=== PATIENT | male | born 1955 | race Hispanic/Latino ===

== ENCOUNTER 2022-12-10 18:04 | Inpatient (IN) | payer MEDICARE ==
[~2022-12-10] VITALS: Ht 165.1 cm; Wt 79.9 kg
[~2022-12-10 18:04] MED LIST: DEXAMETHASONE SOD PHOS INJ 4 MG/ML SDV ONE; EPHEDRINE SULFATE INJ 50 MG/ML VIAL ONE; KETOROLAC TROMETHAMINE 30 MG/ML VIAL ONE; LIDOCAINE HCL 2% LOCAL INJ 5 ML SDV VIAL INJ ONE; METOCLOPRAMIDE HCL 10 MG/2ML VIAL ONE; ONDANSETRON HCL INJ 2MG/ML 2ML 2 MG/ML VIAL ONE; POVIDONE IODINE 0.05% 0.05 % ML PO ONE; PROPOFOL IV EMULSION 10 MG/ML 20 ML VIAL ONE; ROCURONIUM BROMIDE 10 MG/ML 5ML VIAL IV ONE; SEVOFLURANE INHAL SOLN 250 ML PEN BTL ONE; SUCCINYLCHOLINE CHLORIDE 20 MG/ML 10ML VIAL ONE
[2022-12-10] MEDS ORDERED: ONDANSETRON HCL INJ 2MG/ML 2ML 2 MG/ML VIAL IV STA (18:40)
[2022-12-10] MEDS ORDERED: FAMOTIDINE 20 MG/2 ML VIAL IV STA (18:40)
[2022-12-10] MEDS ORDERED: SODIUM CHLORIDE 0.9% 1000ML 1,000 ML IV SCH (18:45)
[2022-12-10] MEDS ORDERED: FLOMAX0.4 MG PO (18:48)
[2022-12-10] MEDS ORDERED: ATORVASTATIN CA20 MG PO (18:48)
[2022-12-10] MEDS ORDERED: [UNRECOGNIZED DRUG - OTHER] (18:48)
[2022-12-10] MEDS ORDERED: LEVOFLOXACIN250 MG PO (18:48)
[2022-12-10] MEDS ORDERED: IOPAMIDOL 370 MG/ML 100 ML INFUS..BTL INJ ONE (19:41)
[2022-12-10] MEDS ORDERED: FAMOTIDINE 20 MG/2 ML VIAL IV ONE (19:58)
[2022-12-10] MEDS ORDERED: SODIUM CHLORIDE 0.9% 1000ML 1,000 ML ONE (19:58)
[2022-12-10] MEDS ORDERED: ONDANSETRON HCL INJ 2MG/ML 2ML 2 MG/ML VIAL ONE (19:58)
[2022-12-10] MEDS ORDERED: CEFTRIAXONE 1 GM VIAL ONE (22:43)
[2022-12-10 23:59] VITALS: BP 145/82
[2022-12-11] VITALS (8 sets, daily range): BP systolic 113–145; BP diastolic 70–83
[2022-12-11] MEDS ORDERED: FINASTERIDE5 MG PO (00:10)
[2022-12-11] MEDS: SODIUM CHLORIDE 0.9% 1000ML 1,000 ML IV SCH ×4 (01:27→21:06)
[2022-12-11 08:07] LABS: BASOPHILS # (AUTO) 0.1 (0.0-0.1); BASOPHILS % 0.9 % (0.0-1.0); EOSINOPHILS # (AUTO) 0.2 (0.0-0.4); HEMOGLOBIN 14.1 g/dL (14.0-18.0); LYMPHOCYTES # (AUTO) 1.5 (1.0-3.2); LYMPHOCYTES % 18.5 % (18.0-39.1); MEAN CORPUSCULAR HEMOGLOBIN 29.9 pg (28-32); MEAN CORPUSCULAR HGB CONC 32.8 g/dL (31-35); MEAN CORPUSCULAR VOLUME 91.1 fL (81-99); MONOCYTES # (AUTO) 0.6 (0.2-0.8); MONOCYTES % 7.5 % (4.4-11.3); NEUTROPHILS # (AUTO) 5.4 (2.1-6.9); NEUTROPHILS % 69.3 % (38.7-80.0); PLATELET COUNT 305 x10e3/uL (140-360); RED BLOOD COUNT 4.72 x10e6/uL (4.3-5.7); RED CELL DISTRIBUTION WIDTH 13.9 % (11.7-14.4)
[2022-12-11 08:30] LABS: ANION GAP 15.4 mmol/L (8-16); CALCIUM 9.4 mg/dL (8.4-10.2); CREATININE, SERUM 0.83 mg/dL (0.72-1.25); POTASSIUM 4.4 mmol/L (3.5-5.1)
[2022-12-11 08:59] LABS: CREATINE KINASE MB 0.9 ng/mL (0-5.0)
[2022-12-11] MEDS ORDERED: GADOBENATE DIMEGLUMINE 1 ML IV ONE (10:18)
[2022-12-11] MEDS ORDERED: ACETAMINOPHEN/CODEINE 300MG - 30MG TAB PO PRN (10:30)
[2022-12-11] MEDS ORDERED: ONDANSETRON HCL INJ 2MG/ML 2ML 2 MG/ML VIAL IV PRN (10:30)
[2022-12-11] MEDS: FINASTERIDE 5 MG TAB PO SCH (12:04)
[2022-12-11] MEDS: TAMSULOSIN HCL 0.4 MG CAP PO SCH (12:04)
[2022-12-11 13:04] LABS: CLARITY,URINE SL CLOUDY (CLEAR); COLOR,URINE YELLOW (YELLOW); KETONES,URINE NEGATIVE (NEGATIVE); LEUKOCYTE ESTERASE ,URINE NEGATIVE (NEGATIVE); NITRITE,URINE NEGATIVE (NEGATIVE); PROTEIN,URINE DIPSTICK NEGATIVE (NEGATIVE); URINE UROBILINOGEN 0.2 mg/dL (0.2 - 1)
[2022-12-11 13:26] LABS: BACTERIA,URINE MODERATE /HPF; EPITHELIAL CELLS,URINE RARE /LPF; RBC,URINE >50 /HPF (0-5); WBC,URINE (MAN) 0-5 /HPF (0-5)
[2022-12-11 16:29] LABS: CREATINE KINASE MB 0.8 ng/mL (0-5.0)
[2022-12-11] MEDS: ATORVASTATIN 20 MG TAB PO SCH (21:06)
[2022-12-12] VITALS (7 sets, daily range): BP systolic 116–131; BP diastolic 66–82
[2022-12-12 00:26] LABS: ALBUMIN 3.4 g/dL (3.5-5.0); BILIRUBIN,DIRECT 0.2 mg/dL (0.0-0.5)
[2022-12-12] MEDS: SODIUM CHLORIDE 0.9% 1000ML 1,000 ML IV SCH ×2 (05:00→18:42)
[2022-12-12 05:56] LABS: BASOPHILS # (AUTO) 0.1 (0.0-0.1); BASOPHILS % 1.1 % (0.0-1.0); EOSINOPHILS # (AUTO) 0.2 (0.0-0.4); EOSINOPHILS % 3.2 % (0.0-6.0); HEMATOCRIT 44.5 % (38.2-49.6); HEMOGLOBIN 14.5 g/dL (14.0-18.0); LYMPHOCYTES # (AUTO) 1.5 (1.0-3.2); LYMPHOCYTES % 24.1 % (18.0-39.1); MEAN CORPUSCULAR HEMOGLOBIN 29.7 pg (28-32); MEAN CORPUSCULAR HGB CONC 32.6 g/dL (31-35); MEAN CORPUSCULAR VOLUME 91.2 fL (81-99); MONOCYTES # (AUTO) 0.5 (0.2-0.8); MONOCYTES % 8.2 % (4.4-11.3); NEUTROPHILS # (AUTO) 3.8 (2.1-6.9); NEUTROPHILS % 61.5 % (38.7-80.0); PLATELET COUNT 331 x10e3/uL (140-360); RED BLOOD COUNT 4.88 x10e6/uL (4.3-5.7); RED CELL DISTRIBUTION WIDTH 13.8 % (11.7-14.4)
[2022-12-12 06:16] LABS: ALBUMIN 3.2 g/dL (3.5-5.0); ALBUMIN/GLOBULIN RATIO 0.9 (0.8-2.0); CREATININE, SERUM 0.78 mg/dL (0.72-1.25)
[2022-12-12 08:31] LABS: CREATINE KINASE MB 0.7 ng/mL (0-5.0)
[2022-12-12] MEDS: TAMSULOSIN HCL 0.4 MG CAP PO SCH (13:11)
[2022-12-12] MEDS: FINASTERIDE 5 MG TAB PO SCH (13:11)
[2022-12-12] MEDS: ATORVASTATIN 20 MG TAB PO SCH (22:11)
[2022-12-13] VITALS (7 sets, daily range): BP systolic 119–148; BP diastolic 72–85
[2022-12-13] MEDS: SODIUM CHLORIDE 0.9% 1000ML 1,000 ML IV SCH ×2 (06:07→21:28)
[2022-12-13] MEDS: FINASTERIDE 5 MG TAB PO SCH (08:31)
[2022-12-13] MEDS: TAMSULOSIN HCL 0.4 MG CAP PO SCH (08:31)
[2022-12-13] MEDS: ATORVASTATIN 20 MG TAB PO SCH (21:28)
[2022-12-14] VITALS (9 sets, daily range): BP systolic 96–156; BP diastolic 68–91
[2022-12-14 06:15] LABS: BASOPHILS # (AUTO) 0.1 (0.0-0.1); BASOPHILS % 1.4 % (0.0-1.0); EOSINOPHILS # (AUTO) 0.3 (0.0-0.4); EOSINOPHILS % 3.9 % (0.0-6.0); HEMOGLOBIN 14.6 g/dL (14.0-18.0); LYMPHOCYTES # (AUTO) 1.6 (1.0-3.2); LYMPHOCYTES % 24.8 % (18.0-39.1); MEAN CORPUSCULAR HEMOGLOBIN 31.9 pg (28-32); MEAN CORPUSCULAR HGB CONC 34.8 g/dL (31-35); MEAN CORPUSCULAR VOLUME 91.9 fL (81-99); MONOCYTES # (AUTO) 0.5 (0.2-0.8); MONOCYTES % 7.2 % (4.4-11.3); NEUTROPHILS # (AUTO) 3.9 (2.1-6.9); NEUTROPHILS % 60.7 % (38.7-80.0); PLATELET COUNT 295 x10e3/uL (140-360); RED BLOOD COUNT 4.57 x10e6/uL (4.3-5.7); RED CELL DISTRIBUTION WIDTH 14.5 % (11.7-14.4)
[2022-12-14 06:46] LABS: ALBUMIN 3.4 g/dL (3.5-5.0); ALBUMIN/GLOBULIN RATIO 0.9 (0.8-2.0); ANION GAP 12.8 mmol/L (8-16); CALCIUM 9.2 mg/dL (8.4-10.2); CREATININE, SERUM 0.8 mg/dL (0.72-1.25); POTASSIUM 3.8 mmol/L (3.5-5.1)
[2022-12-14] MEDS ORDERED: IOPAMIDOL 610MG/1ML 300 MG/ML VIAL IV ONE (08:29)
[2022-12-14] MEDS ORDERED: GENTAMICIN SULFATE 40 MG/ML 2 ML VIAL ONE (08:49)
[2022-12-14] MEDS: TAMSULOSIN HCL 0.4 MG CAP PO SCH (09:00)
[2022-12-14] MEDS: FINASTERIDE 5 MG TAB PO SCH (09:00)
[2022-12-14] MEDS ORDERED: FUROSEMIDE INJ 10 MG/ML 4 ML VIAL ONE (09:51)
[2022-12-14] MEDS ORDERED: SODIUM CHLORIDE 0.9% 1000ML 1,000 ML IV SCH (10:45)
[2022-12-14] MEDS ORDERED: DIPHENHYDRAMINE HCL 25 MG CAP PO PRN (10:45)
[2022-12-14] MEDS ORDERED: ONDANSETRON HCL INJ 2MG/ML 2ML 2 MG/ML VIAL IV PRN (10:45)
[2022-12-14] MEDS ORDERED: ACETAMINOPHEN 1000 MG/100 ML IV PRN (10:45)
[2022-12-14] MEDS: SODIUM CHLORIDE 0.9% 1000ML 1,000 ML IV SCH ×2 (12:15→21:59)
[2022-12-14 12:28] LABS: BASOPHILS % 0.3 % (0.0-1.0); EOSINOPHILS % 0.1 % (0.0-6.0); HEMATOCRIT 43.8 % (38.2-49.6); HEMOGLOBIN 14.3 g/dL (14.0-18.0); LYMPHOCYTES # (AUTO) 1.1 (1.0-3.2); LYMPHOCYTES % 7.4 % (18.0-39.1); MEAN CORPUSCULAR HEMOGLOBIN 29.7 pg (28-32); MEAN CORPUSCULAR HGB CONC 32.6 g/dL (31-35); MEAN CORPUSCULAR VOLUME 91.1 fL (81-99); MONOCYTES # (AUTO) 0.2 (0.2-0.8); MONOCYTES % 1.1 % (4.4-11.3); NEUTROPHILS # (AUTO) 13.4 (2.1-6.9); NEUTROPHILS % 89.8 % (38.7-80.0); PLATELET COUNT 362 x10e3/uL (140-360); RED BLOOD COUNT 4.81 x10e6/uL (4.3-5.7); RED CELL DISTRIBUTION WIDTH 13.2 % (11.7-14.4)
[2022-12-14 12:45] LABS: ANION GAP 17.2 mmol/L (8-16); CALCIUM 8.5 mg/dL (8.4-10.2); CREATININE, SERUM 0.88 mg/dL (0.72-1.25); POTASSIUM 4.2 mmol/L (3.5-5.1)
[2022-12-14] MEDS ORDERED: Morphine 10mg syringe 10 MG/ML INJ ONE (13:31)
[2022-12-14] MEDS ORDERED: FENTANYL CITRATE/PF 100MCG/2 ML INJ ONE (13:31)
[2022-12-14] MEDS: ONDANSETRON HCL 4 MG ORAL DISINTEGRATING TAB PO PRN (13:46)
[2022-12-14] MEDS ORDERED: PROMETHAZINE 12.5MG/ NACL 0.9% 12.5 MG/50 ML BAG IV ONE (15:30)
[2022-12-14] MEDS: DOCUSATE SODIUM 100 MG CAP PO SCH (16:13)
[2022-12-14] MEDS: ATORVASTATIN 20 MG TAB PO SCH (21:59)
[2022-12-15] VITALS (7 sets, daily range): BP systolic 107–114; BP diastolic 66–70
[2022-12-15 05:31] LABS: BASOPHILS % 0.1 % (0.0-1.0); HEMATOCRIT 38.9 % (38.2-49.6); HEMOGLOBIN 12.8 g/dL (14.0-18.0); LYMPHOCYTES # (AUTO) 1.2 (1.0-3.2); LYMPHOCYTES % 7.7 % (18.0-39.1); MEAN CORPUSCULAR HEMOGLOBIN 29.9 pg (28-32); MEAN CORPUSCULAR HGB CONC 32.9 g/dL (31-35); MEAN CORPUSCULAR VOLUME 90.9 fL (81-99); MONOCYTES # (AUTO) 1.1 (0.2-0.8); MONOCYTES % 7.2 % (4.4-11.3); NEUTROPHILS # (AUTO) 12.9 (2.1-6.9); NEUTROPHILS % 83.8 % (38.7-80.0); PLATELET COUNT 330 x10e3/uL (140-360); RED BLOOD COUNT 4.28 x10e6/uL (4.3-5.7); RED CELL DISTRIBUTION WIDTH 13.5 % (11.7-14.4)
[2022-12-15 05:43] LABS: ANION GAP 15.9 mmol/L (8-16); CALCIUM 8.6 mg/dL (8.4-10.2); CREATININE, SERUM 0.98 mg/dL (0.72-1.25); POTASSIUM 4.9 mmol/L (3.5-5.1)
[2022-12-15] MEDS: DOCUSATE SODIUM 100 MG CAP PO SCH ×2 (08:28→17:08)
[2022-12-15] MEDS: FINASTERIDE 5 MG TAB PO SCH (08:28)
[2022-12-15] MEDS: TAMSULOSIN HCL 0.4 MG CAP PO SCH (08:28)
[2022-12-15] MEDS: ACETAMINOPHEN/CODEINE 300MG - 30MG TAB PO PRN ×3 (08:30→18:54)
[2022-12-15] MEDS: SODIUM CHLORIDE 0.9% 1000ML 1,000 ML IV SCH (11:30)
[2022-12-15] MEDS: ATORVASTATIN 20 MG TAB PO SCH (20:16)
[2022-12-15 23:33] LABS: ALBUMIN 2.7 g/dL (3.5-5.0); BILIRUBIN,DIRECT 0.2 mg/dL (0.0-0.5)
[2022-12-16] VITALS (7 sets, daily range): BP systolic 106–131; BP diastolic 63–77
[2022-12-16] MEDS: SODIUM CHLORIDE 0.9% 1000ML 1,000 ML IV SCH ×2 (00:53→14:31)
[2022-12-16 05:05] LABS: BASOPHILS # (AUTO) 0.1 (0.0-0.1); BASOPHILS % 0.4 % (0.0-1.0); EOSINOPHILS # (AUTO) 0.1 (0.0-0.4); EOSINOPHILS % 0.4 % (0.0-6.0); HEMOGLOBIN 10.9 g/dL (14.0-18.0); LYMPHOCYTES # (AUTO) 1.8 (1.0-3.2); LYMPHOCYTES % 13.2 % (18.0-39.1); MEAN CORPUSCULAR HEMOGLOBIN 30.5 pg (28-32); MEAN CORPUSCULAR VOLUME 92.4 fL (81-99); MONOCYTES # (AUTO) 1.1 (0.2-0.8); MONOCYTES % 8.3 % (4.4-11.3); NEUTROPHILS # (AUTO) 10.2 (2.1-6.9); NEUTROPHILS % 75.8 % (38.7-80.0); PLATELET COUNT 289 x10e3/uL (140-360); RED BLOOD COUNT 3.57 x10e6/uL (4.3-5.7); RED CELL DISTRIBUTION WIDTH 13.8 % (11.7-14.4)
[2022-12-16 05:28] LABS: ANION GAP 11.7 mmol/L (8-16); CALCIUM 7.9 mg/dL (8.4-10.2); CREATININE, SERUM 0.79 mg/dL (0.72-1.25); POTASSIUM 4.7 mmol/L (3.5-5.1)
[2022-12-16] MEDS: TAMSULOSIN HCL 0.4 MG CAP PO SCH (08:50)
[2022-12-16] MEDS: DOCUSATE SODIUM 100 MG CAP PO SCH ×2 (08:50→18:11)
[2022-12-16] MEDS: FINASTERIDE 5 MG TAB PO SCH (08:50)
[2022-12-16] MEDS: ACETAMINOPHEN/CODEINE 300MG - 30MG TAB PO PRN ×2 (08:51→16:14)
[2022-12-16] MEDS ORDERED: BISACODYL 5 MG TAB EC PO ONE (11:30)
[2022-12-16] MEDS: ONDANSETRON HCL 4 MG ORAL DISINTEGRATING TAB PO PRN (12:18)
[2022-12-16] MEDS: ACETAMINOPHEN 325 MG TAB PO PRN (15:54)
[2022-12-16] MEDS: ATORVASTATIN 20 MG TAB PO SCH (20:02)
[2022-12-16 22:45] LABS: % IRON SATURATION 33 % (15-50); IRON 62 ug/dL (65-175); TOTAL IRON BINDING CAPACITY 189 ug/dL (261-478); TRANSFERRIN 135 mg/dL (174-364)
[2022-12-17] VITALS (7 sets, daily range): BP systolic 118–144; BP diastolic 65–80
[2022-12-17] MEDS: SODIUM CHLORIDE 0.9% 1000ML 1,000 ML IV SCH ×2 (03:58→17:59)
[2022-12-17 05:38] LABS: BASOPHILS # (AUTO) 0.1 (0.0-0.1); BASOPHILS % 0.6 % (0.0-1.0); EOSINOPHILS # (AUTO) 0.1 (0.0-0.4); EOSINOPHILS % 1.4 % (0.0-6.0); HEMATOCRIT 31.3 % (38.2-49.6); HEMOGLOBIN 10.3 g/dL (14.0-18.0); LYMPHOCYTES # (AUTO) 1.9 (1.0-3.2); LYMPHOCYTES % 18.5 % (18.0-39.1); MEAN CORPUSCULAR HEMOGLOBIN 29.9 pg (28-32); MEAN CORPUSCULAR HGB CONC 32.9 g/dL (31-35); MEAN CORPUSCULAR VOLUME 90.7 fL (81-99); MONOCYTES % 9.5 % (4.4-11.3); NEUTROPHILS # (AUTO) 6.9 (2.1-6.9); NEUTROPHILS % 68.1 % (38.7-80.0); PLATELET COUNT 286 x10e3/uL (140-360); RED BLOOD COUNT 3.45 x10e6/uL (4.3-5.7); RED CELL DISTRIBUTION WIDTH 13.6 % (11.7-14.4)
[2022-12-17 06:02] LABS: ANION GAP 12.7 mmol/L (8-16); CALCIUM 8.4 mg/dL (8.4-10.2); CREATININE, SERUM 0.7 mg/dL (0.72-1.25); POTASSIUM 3.7 mmol/L (3.5-5.1)
[2022-12-17] MEDS: DOCUSATE SODIUM 100 MG CAP PO SCH ×2 (06:15→17:59)
[2022-12-17] MEDS: ACETAMINOPHEN/CODEINE 300MG - 30MG TAB PO PRN (06:15)
[2022-12-17] MEDS: FINASTERIDE 5 MG TAB PO SCH (09:31)
[2022-12-17] MEDS: TAMSULOSIN HCL 0.4 MG CAP PO SCH (09:31)
[2022-12-17] MEDS ORDERED: BISACODYL 5 MG TAB EC PO ONE (11:00)
[2022-12-17] MEDS: ACETAMINOPHEN 325 MG TAB PO PRN (12:06)
[2022-12-17] MEDS: ATORVASTATIN 20 MG TAB PO SCH (21:31)
[2022-12-17] MEDS ORDERED: CYANOCOBALAMIN INJ 1,000 MCG/ML VIAL IM ONE (23:15)
[2022-12-18] VITALS (7 sets, daily range): BP systolic 109–135; BP diastolic 67–75
[2022-12-18] MEDS ORDERED: CYANOCOBALAMIN INJ 1,000 MCG/ML VIAL IM ONE (02:45)
[2022-12-18] MEDS: SODIUM CHLORIDE 0.9% 1000ML 1,000 ML IV SCH ×2 (03:42→19:21)
[2022-12-18 04:59] LABS: BASOPHILS # (AUTO) 0.1 (0.0-0.1); BASOPHILS % 0.9 % (0.0-1.0); EOSINOPHILS # (AUTO) 0.2 (0.0-0.4); EOSINOPHILS % 2.1 % (0.0-6.0); HEMATOCRIT 30.1 % (38.2-49.6); HEMOGLOBIN 9.8 g/dL (14.0-18.0); LYMPHOCYTES # (AUTO) 1.7 (1.0-3.2); LYMPHOCYTES % 18.4 % (18.0-39.1); MEAN CORPUSCULAR HGB CONC 32.6 g/dL (31-35); MONOCYTES # (AUTO) 0.8 (0.2-0.8); MONOCYTES % 8.8 % (4.4-11.3); NEUTROPHILS # (AUTO) 6.3 (2.1-6.9); NEUTROPHILS % 67.3 % (38.7-80.0); PLATELET COUNT 311 x10e3/uL (140-360); RED BLOOD COUNT 3.27 x10e6/uL (4.3-5.7); RED CELL DISTRIBUTION WIDTH 13.5 % (11.7-14.4)
[2022-12-18 05:23] LABS: ALBUMIN 2.6 g/dL (3.5-5.0); ALBUMIN/GLOBULIN RATIO 0.9 (0.8-2.0); ANION GAP 13.7 mmol/L (8-16); CALCIUM 8.5 mg/dL (8.4-10.2); CREATININE, SERUM 0.76 mg/dL (0.72-1.25); POTASSIUM 3.7 mmol/L (3.5-5.1)
[2022-12-18] MEDS ORDERED: CYANOCOBALAMIN INJ 1,000 MCG/ML VIAL IM SCH (09:00)
[2022-12-18] MEDS: FINASTERIDE 5 MG TAB PO SCH (10:27)
[2022-12-18] MEDS: TAMSULOSIN HCL 0.4 MG CAP PO SCH (10:27)
[2022-12-18] MEDS: DOCUSATE SODIUM 100 MG CAP PO SCH ×2 (10:27→17:00)
[2022-12-18] MEDS: IRON SUCROSE 100 MG in SODIUM CHLORIDE 0.9% 100 ML IV SCH (12:38)
[2022-12-18] MEDS ORDERED: BISACODYL 5 MG TAB EC PO ONE (20:00)
[2022-12-18] MEDS: ATORVASTATIN 20 MG TAB PO SCH (20:17)
[2022-12-18] MEDS: CYANOCOBALAMIN INJ 1,000 MCG/ML VIAL IM SCH (20:18)
[2022-12-18] MEDS: ACETAMINOPHEN/CODEINE 300MG - 30MG TAB PO PRN (20:18)
[2022-12-19] MEDS: SODIUM CHLORIDE 0.9% 1000ML 1,000 ML IV SCH (05:13)
[2022-12-19 05:16] VITALS: BP 109/59
[2022-12-19 05:54] VITALS: BP 109/59
[2022-12-19 08:00] VITALS: BP 109/70
[2022-12-19] MEDS: IRON SUCROSE 100 MG in SODIUM CHLORIDE 0.9% 100 ML IV SCH (08:26)
[2022-12-19] MEDS: TAMSULOSIN HCL 0.4 MG CAP PO SCH (08:26)
[2022-12-19] MEDS: DOCUSATE SODIUM 100 MG CAP PO SCH ×2 (08:26→17:12)
[2022-12-19] MEDS: FINASTERIDE 5 MG TAB PO SCH (08:27)
[2022-12-19 12:36] VITALS: BP 104/67
[2022-12-19] MEDS ORDERED: BISACODYL 5 MG TAB EC PO ONE (13:00)
[2022-12-19] MEDS ORDERED: CITRATE OF MAGNESIA 300ML BOTTLE PO ONE (14:15)
[2022-12-19 16:00] VITALS: BP 124/81
[2022-12-19 20:40] VITALS: BP 159/85
[2022-12-19] MEDS: ATORVASTATIN 20 MG TAB PO SCH (20:45)
[2022-12-19] MEDS: ACETAMINOPHEN/CODEINE 300MG - 30MG TAB PO PRN (20:45)
[2022-12-19] MEDS: CYANOCOBALAMIN INJ 1,000 MCG/ML VIAL IM SCH (20:46)
[2022-12-20 00:27] VITALS: BP 99/58
[2022-12-20 04:00] VITALS: BP 106/67
[2022-12-20 07:55] VITALS: BP 129/71
[2022-12-20 08:39] VITALS: BP 129/71
[2022-12-20] MEDS: DOCUSATE SODIUM 100 MG CAP PO SCH (08:46)
[2022-12-20] MEDS: TAMSULOSIN HCL 0.4 MG CAP PO SCH (08:46)
[2022-12-20] MEDS: FINASTERIDE 5 MG TAB PO SCH (08:46)
[2022-12-20] MEDS: IRON SUCROSE 100 MG in SODIUM CHLORIDE 0.9% 100 ML IV SCH (10:29)
[2022-12-20 11:37] VITALS: BP 131/76
== END 2022-12-20 11:54 | disposition home or self-care (01) | DRG 713 ==
LOC: FSED 18:11 → OBSVTOIN 22:45 → ERHOLD 22:45 → MED/SURG2 23:59 → MED/SURG 12-14 08:18
PROVIDERS: ADMIT Internal Medicine; ATTEND Internal Medicine
PROC: 0VB08ZZ Excision of Prostate, Via Natural or Artificial Opening Endoscopic (ICD-10-PCS; 2022-12-14)
PROC: BT1B1ZZ Fluoroscopy of Bladder and Urethra using Low Osmolar Contrast (ICD-10-PCS; 2022-12-14)
PROC: 0T788ZZ Dilation of Bilateral Ureters, Via Natural or Artificial Opening Endoscopic (ICD-10-PCS; principal; 2022-12-14 08:17)
DX: N40.1 Benign prostatic hyperplasia with lower urinary tract symptoms (principal); N39.0 Urinary tract infection, site not specified; T83.511A Infection and inflammatory reaction due to indwelling urethral catheter, initial encounter; N45.3 Epididymo-orchitis; R33.8 Other retention of urine; K80.20 Calculus of gallbladder without cholecystitis without obstruction; E53.8 Deficiency of other specified B group vitamins; E61.1 Iron deficiency; I25.10 Atherosclerotic heart disease of native coronary artery without angina pectoris; Z95.1 Presence of aortocoronary bypass graft; N13.9 Obstructive and reflux uropathy, unspecified; N43.3 Hydrocele, unspecified; K59.00 Constipation, unspecified; E78.00 Pure hypercholesterolemia, unspecified; R31.9 Hematuria, unspecified; Z20.822 Contact with and (suspected) exposure to COVID-19
CPT/HCPCS: 36415; 74177; 74183; 74420; 76705; 76870; 78227; 80048; 80053; 80076; 81001; 81003; 82550; 82553; 82607; 82746; 83540; 83735; 84466; 84484; 85025; 85045; 87086; 88304; 88305; 93005; 93306; 94799; 96361; 99252; 99284; A9537; J0330; J0696; J1100; J1580; J1756; J1885; J1940; J2001; J2270; J2405; J2550; J2765; J3420; J7030; J7050; Q0162; Q9967